=== PATIENT | male | born 1985 ===

== ENCOUNTER 2019-04-22 13:26 | Outpatient (CLI) | payer OTHER ==
--- NOTE | 2019-04-22 15:10 | MRI ---
MRI LEFT SHOULDER 04/22/19 PROVIDED CLINICAL HISTORY: Left shoulder pain. FINDINGS: The components of the rotator cuff appear intact. The long head biceps tendon appears intact and norm ally located. The glenoid labrum and glenohumeral articular cartilage are suboptimally evaluated in the absence of joint distention but demonstrates an unremarkable MR appearance. There is conspicuous acromioclavicular joint effusion with a thickened and indistinct appearance to t he acromioclavicular joint capsular fibers with some associated stripping of the joint capsular attac hment involving the clavicular attachments. The coronoid portion of the coracoclavicular ligament raven ears intact. Intact fibers of the trapezoid component of the coracoclavicular ligament are not identi fied. Regional marrow and muscular signal appear unremarkable. There is no significant subacromial subdelto id bursal fluid. IMPRESSION: Findings compatible with acromioclavicular joint injury, with at least high grade partial tearing of the acromioclavicular joint capsule and nonvisualization of the coronoid component of the coracoclavi cular ligament complex. Correlation with weighted radiographic views may be useful for further evalua tion. POS: OFF
== END 2019-04-22 13:27 | disposition home or self-care (01) ==
LOC: BICMRI 13:26
PROVIDERS: ATTEND Orthopaedic Surgery
DX: S43.52XD Sprain of left acromioclavicular joint, subsequent encounter (principal)